=== PATIENT | female | born 2000 | race African-American/Black ===

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

== ENCOUNTER 2022-07-19 00:15 | Emergency (ER) | payer MEDICAID, OTHER ==
[~2022-07-19] VITALS: Ht 157.5 cm; Wt 71.6 kg
[2022-07-19 00:25] VITALS: BP 106/63
[2022-07-19] MEDS ORDERED: PREDNISONE 20MG TABLET PO ONE (00:45)
[2022-07-19] MEDS ORDERED: DIPHENHYDRAMINE 25MG CAPSULE PO ONE (00:45)
[2022-07-19] MEDS ORDERED: P20 MT (00:47)
[2022-07-19] MEDS ORDERED: DIPH25CA83 MT (00:47)
== END 2022-07-19 01:08 | disposition home or self-care (01) ==
LOC: ER 00:15
DX: T78.40XA Allergy, unspecified, initial encounter (principal); Z88.5 Allergy status to narcotic agent; X58.XXXA Exposure to other specified factors, initial encounter
CPT/HCPCS: 81025; 99283; J7512; Q0163

== ENCOUNTER 2022-08-10 12:26 | Emergency (ER) | payer OTHER ==
[~2022-08-10] VITALS: Ht 154.9 cm; Wt 71.0 kg
[~2022-08-10 12:26] MED LIST: DIPH25CA83 MT; P20 MT
[2022-08-10 12:52] VITALS: BP 100/54
[2022-08-10] MEDS ORDERED: P20 MT (15:25)
[2022-08-10] MEDS ORDERED: DIPH25CA83 MT (15:25)
[2022-08-10] MEDS ORDERED: DIPHENHYDRAMINE 25MG CAPSULE PO ONE (15:30)
[2022-08-10] MEDS ORDERED: PREDNISONE 20MG TABLET PO ONE (15:30)
== END 2022-08-10 15:51 | disposition home or self-care (01) ==
LOC: ER 13:47
DX: T78.40XA Allergy, unspecified, initial encounter (principal); Z88.8 Allergy status to other drugs, medicaments and biological substances; X58.XXXA Exposure to other specified factors, initial encounter
CPT/HCPCS: 99283; J7512; Q0163

== ENCOUNTER 2023-01-07 20:38 | Emergency (ER) | payer OTHER ==
[~2023-01-07] VITALS: Ht 157.5 cm; Wt 68.0 kg
[2023-01-07 21:09] VITALS: BP 101/39; O2SAT 100
[2023-01-07] MEDS ORDERED: PREDNISONE 20MG TABLET PO ONE (22:30)
[2023-01-07] MEDS ORDERED: P50 PO (22:43)
[2023-01-07] MEDS ORDERED: DIPH25TA24 PO (22:43)
[2023-01-07 22:51] VITALS: PULSE 69; RESP 18; TEMP 98.9
== END 2023-01-07 22:53 | disposition home or self-care (01) ==
LOC: ER 20:38
DX: T78.40XA Allergy, unspecified, initial encounter (principal); R60.9 Edema, unspecified; Z88.8 Allergy status to other drugs, medicaments and biological substances; Z91.010 Allergy to peanuts; Z98.890 Other specified postprocedural states; X58.XXXA Exposure to other specified factors, initial encounter
CPT/HCPCS: 99283; 81025; J7512

== ENCOUNTER 2023-09-16 10:13 | Emergency (ER) | payer SELFPAY ==
[~2023-09-16] VITALS: Ht 157.5 cm; Wt 68.0 kg
[~2023-09-16 10:13] MED LIST changes: +DIPH25TA24 PO; +P50 PO
[2023-09-16 10:30] VITALS: O2SAT 98
[2023-09-16] MEDS: ACETAMINOPHEN 325MG TABLET PO ONE (11:33)
[2023-09-16] MEDS ORDERED: ACET325T52 MT (11:55)
[2023-09-16 12:29] VITALS: BP 111/73; PULSE 82; RESP 18; TEMP 98.4
== END 2023-09-16 12:30 | disposition home or self-care (01) ==
LOC: ER 11:06
DX: M79.642 Pain in left hand (principal); Z98.890 Other specified postprocedural states; Z88.5 Allergy status to narcotic agent
CPT/HCPCS: 29125; 73130; 81025; 99283